=== PATIENT | male | born 1990 | race Caucasian/White ===

== ENCOUNTER 2017-10-29 00:43 | Inpatient (IN) | payer OTHER ==
[~2017-10-29] VITALS: Ht 172.7 cm; Wt 75.3 kg
[2017-10-29] MEDS ORDERED: LORazepam 2 MG TABLET PO PRN (02:15)
[2017-10-29] MEDS ORDERED: ZOLPIDEM TARTRATE 10 MG TABLET PO PRN (02:15)
[2017-10-29] MEDS ORDERED: HALOPERIDOL 5 MG TABLET PO PRN (02:15)
[2017-10-29 02:54] VITALS: BP 132/91
[2017-10-29] MEDS ORDERED: PNEUMOCOCCAL VACCINE POLYVALENT 0.5 ML VIAL [PPSV23] IM ONE (03:15)
[2017-10-29 08:41] VITALS: BP 129/90
[2017-10-29] MEDS ORDERED: METOPROLOL SUCCINATE 50 MG ER TABLET PO SCH (09:30)
[2017-10-29] MEDS ORDERED: LEVOTHYROXINE SODIUM 50 MCG TABLET PO ONE (09:30)
[2017-10-29] MEDS: ASPIRIN 81 MG EC TABLET PO SCH (10:28)
[2017-10-29] MEDS ORDERED: ACETAMINOPHEN 325 MG TABLET PO PRN (12:15)
[2017-10-29] MEDS ORDERED: ChlorproMAZINE HCL 100 MG TABLET PO PRN (12:15)
[2017-10-29] MEDS ORDERED: DIAZEPAM 5 MG TABLET PO PRN (12:15)
[2017-10-29] MEDS: HydrOXYzine PAMOATE 50 MG CAPSULE PO SCH ×2 (12:52→16:53)
[2017-10-29] MEDS: GABAPENTIN 300 MG CAPSULE PO SCH ×2 (12:52→16:54)
[2017-10-29] MEDS: BENZTROPINE MESYLATE 1 MG TABLET PO SCH (12:52)
[2017-10-29 13:00] VITALS: BP 126/88
[2017-10-29] MEDS ORDERED: HydrOXYzine PAMOATE 25 MG CAPSULE PO SCH ×2 (13:00→17:00)
[2017-10-29] MEDS: ASENAPINE 5 MG SUBLINGUAL TABLET SL SCH (14:41)
[2017-10-29 16:19] VITALS: BP 128/79
[2017-10-29] MEDS: METOPROLOL TARTRATE 50 MG TABLET PO SCH (16:53)
[2017-10-29] MEDS ORDERED: GABAPENTIN 300 MG CAPSULE PO SCH (17:00)
[2017-10-29 18:00] VITALS: BP 125/79
[2017-10-30 06:20] VITALS: BP 113/81
[2017-10-30] MEDS: HydrOXYzine PAMOATE 50 MG CAPSULE PO SCH ×3 (06:51→16:52)
[2017-10-30] MEDS: ESCITALOPRAM OXALATE 10 MG TABLET PO SCH (06:51)
[2017-10-30] MEDS: LEVOTHYROXINE SODIUM 50 MCG TABLET PO SCH (06:51)
[2017-10-30] MEDS: GABAPENTIN 300 MG CAPSULE PO SCH ×3 (06:52→16:52)
[2017-10-30] MEDS: ASENAPINE 5 MG SUBLINGUAL TABLET SL SCH ×2 (06:52→14:27)
[2017-10-30] MEDS ORDERED: ASENAPINE 5 MG SUBLINGUAL TABLET SL SCH (07:00)
[2017-10-30] MEDS ORDERED: GABAPENTIN 300 MG CAPSULE PO SCH (07:00)
[2017-10-30 08:46] VITALS: BP 126/82
[2017-10-30 08:59] LABS: ALANINE AMINOTRANSFERASE 24 U/L (12-78); ALBUMIN 4.2 g/dL (3.4-5.0); ANION GAP 7 mmol/L (8-16); ASPARTATE AMINOTRANSFERASE 15 U/L (15-37); BILIRUBIN,TOTAL 0.3 mg/dL (0.1-1.0); CALCIUM, TOTAL 9.6 mg/dL (8.8-10.5); CARBON DIOXIDE 28 mmol/L (22-29); CHLORIDE 106 mmol/L (98-107); CHOL/HDL RATIO 4.4 (4.2-7.3); CREATININE 1.19 mg/dL (0.60-1.30); GLOMERULAR FILTR. RATE CALC > 60 mL/min (>60); POTASSIUM 4.1 mmol/L (3.5-5.1); SODIUM SERUM 141 mmol/L (136-145); THYROID STIMULATING HORMONE 3.02 uIU/mL (0.36-3.74); UREA NITROGEN, BLOOD 13 mg/dL (7-18)
[2017-10-30] MEDS ORDERED: ASPIRIN 81 MG EC TABLET PO SCH (09:00)
[2017-10-30] MEDS: BENZTROPINE MESYLATE 1 MG TABLET PO SCH (09:16)
[2017-10-30] MEDS: METOPROLOL TARTRATE 50 MG TABLET PO SCH ×2 (09:16→16:52)
[2017-10-30] MEDS: ASPIRIN 81 MG EC TABLET PO SCH (09:17)
[2017-10-30 11:27] LABS: HEMOGLOBIN A1C 5.2 % (4.5-6.2)
[2017-10-30 13:24] VITALS: BP 111/70
[2017-10-30 14:00] VITALS: BP 122/85
[2017-10-30 16:20] VITALS: BP 115/85
[2017-10-31 00:13] VITALS: BP 116/78
[2017-10-31] MEDS: LEVOTHYROXINE SODIUM 50 MCG TABLET PO SCH (06:39)
[2017-10-31] MEDS: GABAPENTIN 300 MG CAPSULE PO SCH ×3 (06:39→16:52)
[2017-10-31] MEDS: HydrOXYzine PAMOATE 50 MG CAPSULE PO SCH ×3 (06:39→16:52)
[2017-10-31] MEDS: ASENAPINE 5 MG SUBLINGUAL TABLET SL SCH ×2 (06:39→14:13)
[2017-10-31] MEDS: ESCITALOPRAM OXALATE 10 MG TABLET PO SCH (06:39)
[2017-10-31 08:00] VITALS: BP 119/67
[2017-10-31] MEDS: ASPIRIN 81 MG EC TABLET PO SCH (09:03)
[2017-10-31] MEDS: BENZTROPINE MESYLATE 1 MG TABLET PO SCH (09:03)
[2017-10-31] MEDS: METOPROLOL TARTRATE 50 MG TABLET PO SCH ×2 (09:03→16:52)
[2017-10-31 09:05] VITALS: BP 123/83
[2017-10-31 09:27] LABS: XESTRADIOL SERUM 19.4 pg/mL (7.6-42.6)
[2017-10-31] MEDS ORDERED: HydrOXYzine PAMOATE 50 MG CAPSULE PO PRN (16:00)
[2017-10-31] MEDS ORDERED: MAGNESIUM HYDROXIDE SUSPENSION 30 ML UDCUP PO PRN (16:00)
[2017-10-31] MEDS ORDERED: GuaiFENesin/D-METHORPHAN [SUGAR-FREE] 200-20MG/10 ML SYRUP UDCUP PO PRN (16:00)
[2017-10-31] MEDS ORDERED: PROMETHAZINE HCL 25 MG TABLET PO PRN (16:00)
[2017-10-31] MEDS ORDERED: ACETAMINOPHEN 325 MG TABLET PO PRN (16:00)
[2017-10-31] MEDS ORDERED: MAG HYDROX/AL HYDROX/SIMETH ES 30 ML SUSPENSION UDCUP PO PRN (16:00)
[2017-10-31] MEDS ORDERED: LOPERAMIDE HCL 2 MG CAPSULE PO PRN (16:00)
[2017-10-31 16:39] VITALS: BP 124/90
[2017-10-31] MEDS: THIAMINE HCL 100 MG TABLET PO SCH (17:06)
[2017-10-31] MEDS ORDERED: LACTULOSE 20 GM/30 ML SOLUTION UDCUP PO PRN (21:00)
[2017-10-31] MEDS ORDERED: PARoxetine HCL 20 MG TABLET PO SCH (21:00)
[2017-10-31] MEDS ORDERED: BISACODYL 10 MG RECTAL RECTAL SUPPOSITORY PR PRN (21:00)
[2017-10-31] MEDS ORDERED: BISACODYL 5 MG EC TABLET PO PRN (21:00)
[2017-11-01 01:01] VITALS: BP 104/64
[2017-11-01] MEDS: LEVOTHYROXINE SODIUM 50 MCG TABLET PO SCH (06:27)
[2017-11-01] MEDS ORDERED: LINACLOTIDE 145 MCG CAPSULE PO SCH (06:30)
[2017-11-01] MEDS: GABAPENTIN 300 MG CAPSULE PO SCH ×3 (06:43→16:40)
[2017-11-01] MEDS: HydrOXYzine PAMOATE 50 MG CAPSULE PO SCH ×3 (06:44→16:40)
[2017-11-01 08:18] VITALS: BP 120/84
[2017-11-01] MEDS ORDERED: DOCUSATE SODIUM 100 MG CAPSULE PO SCH (09:00)
[2017-11-01] MEDS: METOPROLOL TARTRATE 50 MG TABLET PO SCH ×2 (09:18→16:40)
[2017-11-01] MEDS: FOLIC ACID 1 MG TABLET PO SCH (09:18)
[2017-11-01] MEDS: MULTIVITAMINS WITH MINERALS, THERAPEUTIC TABLET PO SCH (09:18)
[2017-11-01] MEDS: THIAMINE HCL 100 MG TABLET PO SCH ×2 (09:18→16:40)
[2017-11-01] MEDS: ASPIRIN 81 MG EC TABLET PO SCH (09:18)
[2017-11-01] MEDS: DOCUSATE SODIUM 250 MG CAPSULE PO SCH ×2 (09:41→16:40)
[2017-11-01] MEDS: DIAZEPAM 10 MG TABLET PO PRN (11:12)
[2017-11-01 16:10] VITALS: BP 127/89
[2017-11-01] MEDS: PARoxetine HCL 20 MG TABLET PO SCH (20:31)
[2017-11-01] MEDS ORDERED: MIRTAZAPINE 15 MG TABLET PO SCH (21:00)
[2017-11-02 01:41] VITALS: BP 120/77
[2017-11-02] MEDS: HydrOXYzine PAMOATE 50 MG CAPSULE PO SCH ×3 (06:35→16:40)
[2017-11-02] MEDS: LEVOTHYROXINE SODIUM 50 MCG TABLET PO SCH (06:35)
[2017-11-02] MEDS: GABAPENTIN 400 MG CAPSULE PO SCH ×3 (06:36→16:40)
[2017-11-02 08:47] LABS: BASOPHILS % (AUTO) 0.6 % (0.0-2.0); EOSINOPHILS % (AUTO) 0 % (1.0-6.0); HEMOGLOBIN 15.9 g/dL (13.5-17.5); LYMPHOCYTES % (AUTO) 32.8 % (22.0-44.0); MEAN CORPUSCULAR HEMOGLOBIN 31.2 pg (26.0-34.0); MEAN CORPUSCULAR HGB CONC 34.6 G/dL (31.0-37.0); MEAN CORPUSCULAR VOLUME 90 fL (80-100); MONOCYTES # (AUTO) 0.8 K/uL (0.1-1.0); MONOCYTES % (AUTO) 12.4 % (2.0-9.0); NEUTROPHILS # (AUTO) 3.3 K/uL (1.8-7.7); NEUTROPHILS % (AUTO) 54.2 % (40.0-70.0); PLATELET COUNT (AUTO) 226 K/uL (150-450); RED BLOOD CELL COUNT(AUTO) 5.11 MIL/uL (4.50-5.90); RED CELL DISTRIBUTION WIDTH 12.5 % (11.5-14.5); WHITE BLOOD COUNT (AUTO) 6.2 K/uL (4.5-11.0)
[2017-11-02 08:48] VITALS: BP 119/80
[2017-11-02 09:07] LABS: ALANINE AMINOTRANSFERASE 25 U/L (12-78); ALBUMIN 3.8 g/dL (3.4-5.0); ANION GAP 7 mmol/L (8-16); ASPARTATE AMINOTRANSFERASE 15 U/L (15-37); BILIRUBIN,TOTAL 0.4 mg/dL (0.1-1.0); CALCIUM, TOTAL 8.9 mg/dL (8.8-10.5); CARBON DIOXIDE 29 mmol/L (22-29); CHLORIDE 103 mmol/L (98-107); CREATINE KINASE MB 0.9 ng/mL (0-5); CREATINE KINASE, TOTAL 106 U/L (39-308); CREATININE 1.22 mg/dL (0.60-1.30); GLOMERULAR FILTR. RATE CALC > 60 mL/min (>60); POTASSIUM 4.3 mmol/L (3.5-5.1); SODIUM SERUM 139 mmol/L (136-145); THYROID STIMULATING HORMONE 3.38 uIU/mL (0.36-3.74); TOTAL PROTEIN, SERUM 7.3 g/dL (6.4-8.2); UREA NITROGEN, BLOOD 19 mg/dL (7-18)
[2017-11-02] MEDS: MULTIVITAMINS WITH MINERALS, THERAPEUTIC TABLET PO SCH (09:32)
[2017-11-02] MEDS: METOPROLOL TARTRATE 50 MG TABLET PO SCH (09:32)
[2017-11-02] MEDS: THIAMINE HCL 100 MG TABLET PO SCH ×2 (09:32→16:40)
[2017-11-02] MEDS: DOCUSATE SODIUM 250 MG CAPSULE PO SCH ×2 (09:32→16:41)
[2017-11-02] MEDS: ASPIRIN 81 MG EC TABLET PO SCH (09:32)
[2017-11-02] MEDS: FOLIC ACID 1 MG TABLET PO SCH (09:33)
[2017-11-02 16:17] VITALS: BP 123/87
[2017-11-02] MEDS: METOPROLOL TARTRATE 25 MG TABLET PO SCH (17:55)
[2017-11-02] MEDS ORDERED: FLUCONAZOLE 150 MG TABLET PO ONE (20:00)
[2017-11-02] MEDS: MIRTAZAPINE 15 MG TABLET PO SCH (21:35)
[2017-11-02] MEDS: PARoxetine HCL 20 MG TABLET PO SCH (21:35)
[2017-11-03] MEDS: LEVOTHYROXINE SODIUM 50 MCG TABLET PO SCH (06:58)
[2017-11-03] MEDS: HydrOXYzine PAMOATE 50 MG CAPSULE PO SCH ×3 (07:00→17:14)
[2017-11-03] MEDS: GABAPENTIN 400 MG CAPSULE PO SCH ×3 (07:00→17:14)
[2017-11-03 07:30] VITALS: BP 121/80
[2017-11-03 08:56] VITALS: BP 114/76
[2017-11-03] MEDS: DOCUSATE SODIUM 250 MG CAPSULE PO SCH ×2 (10:30→17:14)
[2017-11-03] MEDS: ASPIRIN 81 MG EC TABLET PO SCH (10:30)
[2017-11-03] MEDS: FOLIC ACID 1 MG TABLET PO SCH (10:30)
[2017-11-03] MEDS: METOPROLOL TARTRATE 25 MG TABLET PO SCH (10:30)
[2017-11-03] MEDS: THIAMINE HCL 100 MG TABLET PO SCH ×2 (10:30→17:14)
[2017-11-03] MEDS: MULTIVITAMINS WITH MINERALS, THERAPEUTIC TABLET PO SCH (10:30)
[2017-11-03] MEDS: NYSTATIN 15 GM POWDER BOTTLE TP SCH ×2 (10:32→17:15)
[2017-11-03 16:10] VITALS: BP 122/80
[2017-11-03] MEDS: PROPRANOLOL HCL 10 MG TABLET PO SCH ×2 (17:14→20:46)
[2017-11-03] MEDS: OLANZapine 5 MG RAPDIS TABLET PO SCH (20:46)
[2017-11-03] MEDS: PARoxetine HCL 20 MG TABLET PO SCH (20:46)
[2017-11-03] MEDS: MIRTAZAPINE 15 MG TABLET PO SCH (20:46)
[2017-11-04] MEDS: LEVOTHYROXINE SODIUM 50 MCG TABLET PO SCH (06:25)
[2017-11-04 06:36] VITALS: BP 106/69
[2017-11-04] MEDS: GABAPENTIN 400 MG CAPSULE PO SCH ×3 (07:02→16:41)
[2017-11-04] MEDS: HydrOXYzine PAMOATE 50 MG CAPSULE PO SCH ×3 (07:02→16:41)
[2017-11-04] MEDS: DOCUSATE SODIUM 250 MG CAPSULE PO SCH ×2 (08:27→16:41)
[2017-11-04] MEDS: ASPIRIN 81 MG EC TABLET PO SCH (08:27)
[2017-11-04] MEDS: THIAMINE HCL 100 MG TABLET PO SCH ×2 (08:27→16:41)
[2017-11-04] MEDS: PROPRANOLOL HCL 10 MG TABLET PO SCH ×4 (08:27→20:37)
[2017-11-04] MEDS: FOLIC ACID 1 MG TABLET PO SCH (08:27)
[2017-11-04] MEDS: MULTIVITAMINS WITH MINERALS, THERAPEUTIC TABLET PO SCH (08:27)
[2017-11-04] MEDS: NYSTATIN 15 GM POWDER BOTTLE TP SCH ×2 (08:28→16:42)
[2017-11-04 08:42] VITALS: BP 120/76
[2017-11-04 12:40] VITALS: BP 130/88
[2017-11-04 16:08] VITALS: BP 120/83
[2017-11-04 20:21] VITALS: BP 130/96
[2017-11-04] MEDS: OLANZapine 5 MG RAPDIS TABLET PO SCH (20:37)
[2017-11-04] MEDS: PARoxetine HCL 20 MG TABLET PO SCH (20:37)
[2017-11-04] MEDS: MIRTAZAPINE 15 MG TABLET PO SCH (20:38)
[2017-11-05 04:49] VITALS: BP 122/78
[2017-11-05] MEDS: LEVOTHYROXINE SODIUM 50 MCG TABLET PO SCH (06:36)
[2017-11-05] MEDS: HydrOXYzine PAMOATE 50 MG CAPSULE PO SCH ×3 (06:36→16:38)
[2017-11-05] MEDS: GABAPENTIN 400 MG CAPSULE PO SCH ×3 (06:37→16:38)
[2017-11-05 09:06] VITALS: BP 121/85
[2017-11-05] MEDS: FOLIC ACID 1 MG TABLET PO SCH (09:11)
[2017-11-05] MEDS: MULTIVITAMINS WITH MINERALS, THERAPEUTIC TABLET PO SCH (09:11)
[2017-11-05] MEDS: THIAMINE HCL 100 MG TABLET PO SCH ×2 (09:11→16:38)
[2017-11-05] MEDS: PROPRANOLOL HCL 10 MG TABLET PO SCH ×4 (09:11→20:37)
[2017-11-05] MEDS: ASPIRIN 81 MG EC TABLET PO SCH (09:12)
[2017-11-05] MEDS: DOCUSATE SODIUM 250 MG CAPSULE PO SCH ×2 (09:12→16:38)
[2017-11-05] MEDS: NYSTATIN 15 GM POWDER BOTTLE TP SCH ×2 (09:13→17:26)
[2017-11-05 12:50] VITALS: BP 120/82
[2017-11-05 16:30] VITALS: BP 131/94
[2017-11-05 20:35] VITALS: BP 129/90
[2017-11-05] MEDS: PARoxetine HCL 20 MG TABLET PO SCH (20:37)
[2017-11-05] MEDS: MIRTAZAPINE 15 MG TABLET PO SCH (20:37)
[2017-11-05] MEDS: OLANZapine 5 MG RAPDIS TABLET PO SCH (20:38)
[2017-11-06 01:23] VITALS: BP 116/83
[2017-11-06] MEDS: DIAZEPAM 10 MG TABLET PO PRN (01:23)
[2017-11-06] MEDS: HydrOXYzine PAMOATE 50 MG CAPSULE PO SCH ×3 (06:41→16:23)
[2017-11-06] MEDS: GABAPENTIN 400 MG CAPSULE PO SCH ×3 (06:41→16:23)
[2017-11-06] MEDS: LEVOTHYROXINE SODIUM 50 MCG TABLET PO SCH (06:41)
[2017-11-06 08:35] VITALS: BP 126/89
[2017-11-06] MEDS: MULTIVITAMINS WITH MINERALS, THERAPEUTIC TABLET PO SCH (08:37)
[2017-11-06] MEDS: ASPIRIN 81 MG EC TABLET PO SCH (08:37)
[2017-11-06] MEDS: PROPRANOLOL HCL 10 MG TABLET PO SCH ×4 (08:37→20:24)
[2017-11-06] MEDS: DOCUSATE SODIUM 250 MG CAPSULE PO SCH ×2 (08:37→16:23)
[2017-11-06] MEDS: FOLIC ACID 1 MG TABLET PO SCH (08:37)
[2017-11-06] MEDS: THIAMINE HCL 100 MG TABLET PO SCH ×2 (08:37→16:23)
[2017-11-06] MEDS: NYSTATIN 15 GM POWDER BOTTLE TP SCH ×2 (08:38→16:23)
[2017-11-06 13:00] VITALS: BP 127/87
[2017-11-06] MEDS ORDERED: LORazepam 1 MG TABLET PO PRN (15:15)
[2017-11-06 16:11] VITALS: BP 121/81
[2017-11-06 20:20] VITALS: BP 125/88
[2017-11-06] MEDS: MIRTAZAPINE 15 MG TABLET PO SCH (20:24)
[2017-11-06] MEDS ORDERED: PARoxetine HCL 20 MG TABLET PO SCH (21:00)
[2017-11-07 05:00] VITALS: BP 110/72
[2017-11-07] MEDS: HydrOXYzine PAMOATE 50 MG CAPSULE PO SCH ×3 (06:45→16:32)
[2017-11-07] MEDS: LEVOTHYROXINE SODIUM 50 MCG TABLET PO SCH (06:45)
[2017-11-07] MEDS: GABAPENTIN 400 MG CAPSULE PO SCH ×3 (06:46→16:32)
[2017-11-07 08:28] VITALS: BP 135/91
[2017-11-07] MEDS: MULTIVITAMINS WITH MINERALS, THERAPEUTIC TABLET PO SCH (09:51)
[2017-11-07] MEDS: DOCUSATE SODIUM 250 MG CAPSULE PO SCH ×2 (09:51→16:32)
[2017-11-07] MEDS: THIAMINE HCL 100 MG TABLET PO SCH ×2 (09:51→16:33)
[2017-11-07] MEDS: NYSTATIN 15 GM POWDER BOTTLE TP SCH ×2 (09:52→16:33)
[2017-11-07] MEDS: FOLIC ACID 1 MG TABLET PO SCH (09:52)
[2017-11-07] MEDS: ASPIRIN 81 MG EC TABLET PO SCH (10:04)
[2017-11-07] MEDS: PROPRANOLOL HCL 10 MG TABLET PO SCH ×4 (10:31→20:51)
[2017-11-07 16:07] VITALS: BP 126/90
[2017-11-07] MEDS: PARoxetine HCL 20 MG TABLET PO SCH (16:33)
[2017-11-07 20:48] VITALS: BP 136/92
[2017-11-07] MEDS: MIRTAZAPINE 15 MG TABLET PO SCH (20:51)
[2017-11-08 06:00] VITALS: BP 112/65
[2017-11-08] MEDS: HydrOXYzine PAMOATE 50 MG CAPSULE PO SCH ×3 (06:56→17:04)
[2017-11-08] MEDS: LEVOTHYROXINE SODIUM 50 MCG TABLET PO SCH (06:56)
[2017-11-08] MEDS: GABAPENTIN 400 MG CAPSULE PO SCH ×3 (06:57→17:04)
[2017-11-08] MEDS: PARoxetine HCL 20 MG TABLET PO SCH ×2 (06:57→11:30)
[2017-11-08 08:56] VITALS: BP 118/79
[2017-11-08] MEDS: DOCUSATE SODIUM 250 MG CAPSULE PO SCH ×2 (09:37→17:04)
[2017-11-08] MEDS: ASPIRIN 81 MG EC TABLET PO SCH (09:38)
[2017-11-08] MEDS: MULTIVITAMINS WITH MINERALS, THERAPEUTIC TABLET PO SCH (09:38)
[2017-11-08] MEDS: THIAMINE HCL 100 MG TABLET PO SCH ×2 (09:38→17:04)
[2017-11-08] MEDS: FOLIC ACID 1 MG TABLET PO SCH (09:38)
[2017-11-08] MEDS: PROPRANOLOL HCL 10 MG TABLET PO SCH ×4 (09:38→20:49)
[2017-11-08] MEDS: NYSTATIN 15 GM POWDER BOTTLE TP SCH ×2 (09:39→17:04)
[2017-11-08 12:25] VITALS: BP 134/92
[2017-11-08 16:09] VITALS: BP 130/84
[2017-11-08] MEDS ORDERED: PARoxetine HCL 20 MG TABLET PO SCH (21:00)
[2017-11-09] MEDS: LEVOTHYROXINE SODIUM 50 MCG TABLET PO SCH (06:38)
[2017-11-09] MEDS: HydrOXYzine PAMOATE 50 MG CAPSULE PO SCH ×3 (06:38→16:40)
[2017-11-09] MEDS: GABAPENTIN 400 MG CAPSULE PO SCH ×3 (06:39→16:38)
[2017-11-09 07:18] VITALS: BP 117/73
[2017-11-09 08:13] VITALS: BP 112/75
[2017-11-09] MEDS: THIAMINE HCL 100 MG TABLET PO SCH ×2 (08:52→16:38)
[2017-11-09] MEDS: ASPIRIN 81 MG EC TABLET PO SCH (08:52)
[2017-11-09] MEDS: FOLIC ACID 1 MG TABLET PO SCH (08:52)
[2017-11-09] MEDS: PROPRANOLOL HCL 10 MG TABLET PO SCH ×4 (08:52→20:42)
[2017-11-09] MEDS: DOCUSATE SODIUM 250 MG CAPSULE PO SCH ×2 (08:52→16:38)
[2017-11-09] MEDS: MULTIVITAMINS WITH MINERALS, THERAPEUTIC TABLET PO SCH (08:52)
[2017-11-09] MEDS: NYSTATIN 15 GM POWDER BOTTLE TP SCH ×2 (08:53→16:41)
[2017-11-09 12:28] VITALS: BP 141/91
[2017-11-09] MEDS ORDERED: PROP10TA72 PO (14:39)
[2017-11-09] MEDS ORDERED: GABA-533 PO (14:39)
[2017-11-09] MEDS ORDERED: PARO-37 PO (14:39)
[2017-11-09 16:43] VITALS: BP 120/84
[2017-11-09 20:40] VITALS: BP 131/89
[2017-11-09] MEDS ORDERED: PARoxetine HCL 20 MG TABLET PO SCH (21:00)
[2017-11-10] MEDS: LEVOTHYROXINE SODIUM 50 MCG TABLET PO SCH (06:02)
[2017-11-10 06:52] VITALS: BP 134/88
[2017-11-10] MEDS: HydrOXYzine PAMOATE 50 MG CAPSULE PO SCH (06:52)
[2017-11-10] MEDS: GABAPENTIN 400 MG CAPSULE PO SCH (06:52)
[2017-11-10] MEDS ORDERED: PROP10TA73 PO (08:10)
[2017-11-10] MEDS ORDERED: PARO20TA24 PO (08:10)
[2017-11-10] MEDS ORDERED: GABA-533 PO (08:10)
[2017-11-10] MEDS ORDERED: VIST50 PO (08:10)
[2017-11-10] MEDS ORDERED: ASPI81 PO (08:10)
[2017-11-10 08:14] VITALS: BP 131/90
[2017-11-10] MEDS: ASPIRIN 81 MG EC TABLET PO SCH (08:57)
[2017-11-10] MEDS: FOLIC ACID 1 MG TABLET PO SCH (08:57)
[2017-11-10] MEDS: MULTIVITAMINS WITH MINERALS, THERAPEUTIC TABLET PO SCH (08:57)
[2017-11-10] MEDS: DOCUSATE SODIUM 250 MG CAPSULE PO SCH (08:57)
[2017-11-10] MEDS: PROPRANOLOL HCL 10 MG TABLET PO SCH (08:57)
[2017-11-10] MEDS: THIAMINE HCL 100 MG TABLET PO SCH (08:57)
[2017-11-10] MEDS: NYSTATIN 15 GM POWDER BOTTLE TP SCH (08:58)
== END 2017-11-10 10:30 | disposition home or self-care (01) | DRG 885 ==
LOC: B2X 02:26
PROVIDERS: ADMIT Psychiatry & Neurology Psychiatry; ATTEND Psychiatry & Neurology Psychiatry
DX: F33.2 Major depressive disorder, recurrent severe without psychotic features (principal); R45.851 Suicidal ideations; E03.9 Hypothyroidism, unspecified; E78.5 Hyperlipidemia, unspecified; F41.9 Anxiety disorder, unspecified; I10 Essential (primary) hypertension; I34.1 Nonrheumatic mitral (valve) prolapse; L30.9 Dermatitis, unspecified; R00.0 Tachycardia, unspecified; N62 Hypertrophy of breast
CPT/HCPCS: 82670; 82679; 83036; 84402; 84403; 84436; 84439; 84443; 87389